=== PATIENT | female | born 1970 | race Two or more races ===

== ENCOUNTER 2020-07-15 11:29 | Emergency (ER) | payer OTHER ==
[~2020-07-15] VITALS: Ht 182.9 cm; Wt 107.5 kg
[2020-07-15] MEDS ORDERED: CLONAZEPAM2 MG (11:49)
[2020-07-15] MEDS ORDERED: JANUMET 50-1,01 EACH (11:49)
[2020-07-15] MEDS ORDERED: CYMBALTA60 MG (11:50)
[2020-07-15] MEDS ORDERED: CANDESARTAN CIL32 MG (11:50)
[2020-07-15] MEDS ORDERED: NEURONTIN300 MG (11:51)
== END 2020-07-17 09:56 | disposition home or self-care (01) ==
LOC: ER 11:29
DX: N93.8 Other specified abnormal uterine and vaginal bleeding (principal); D50.0 Iron deficiency anemia secondary to blood loss (chronic); Z20.828 Contact with and (suspected) exposure to other viral communicable diseases